=== PATIENT | female | born 1990 | race Caucasian/White ===

== ENCOUNTER 2016-04-01 09:22 | Emergency (ER) | payer BC ==
--- NOTE | 2016-04-01 11:32 | RAD ---
KNEE- RIGHT 4 OR MORE VIEWS HISTORY: Knee pain. COMPARISONS: None. FINDINGS: 4 views of the right knee were performed demonstrating intact osseous structures. The knee joint spaces are relatively well-maintained. No lytic or blastic lesions are seen. No evidence of a significant knee joint effusion is observed. IMPRESSION: 1. Negative views of the right knee.
--- NOTE | 2016-04-01 11:32 | RAD ---
KNEE- LEFT 4 OR MORE VIEWS HISTORY: Bilateral knee pain. COMPARISONS: None. FINDINGS: 4 views of the left knee demonstrate grossly intact osseous structures. The knee joint spaces are relatively well-maintained. No lytic or blastic lesions are seen. No evidence of a significant knee joint effusion is observed. IMPRESSION: 1. Negative views of the left knee.
== END 2016-04-01 11:21 | disposition home or self-care (01) ==
LOC: ED 09:22
DX: M25.562 Pain in left knee (principal); M25.561 Pain in right knee; F41.9 Anxiety disorder, unspecified; F90.9 Attention-deficit hyperactivity disorder, unspecified type; F17.210 Nicotine dependence, cigarettes, uncomplicated